=== PATIENT | male | born 1955 | race Caucasian/White ===

== ENCOUNTER 2018-04-09 03:12 | Emergency (ER) | payer SELFPAY ==
[~2018-04-09] VITALS: Ht 180.3 cm; Wt 105.8 kg
[2018-04-09 03:19] VITALS: Ht 180.3 cm; Wt 105.8 kg
[2018-04-09 05:35] VITALS: BP 122/66
== END 2018-04-09 05:35 | disposition home or self-care (01) ==
LOC: ED 03:12
DX: K42.9 Umbilical hernia without obstruction or gangrene (principal); R14.0 Abdominal distension (gaseous); E11.9 Type 2 diabetes mellitus without complications; Z88.5 Allergy status to narcotic agent